=== PATIENT | female | born 1940 | race Caucasian/White ===

== ENCOUNTER → 2017-06-05 | Outpatient (CLI) | payer OTHER ==
[~2017-06-05] MED LIST: ADULT LOW DOSE81 MG PO; AMBIEN 10 MG TA10 MG PO; ANTIBIOTIC; CAL-MAG-ZINC T1 EACH PO; DIGESTIVE ENZY1 EAC2 PO; DRANOCHOL375 MG PO; FISHOIL; FLAXSEED OIL1000 MG PO; HYDROCODON-ACE1 EACH PO; MEDROLDOSEPACK PO; MIRAPEX1 MG PO; MULTIVITAMINS; PROZAC 10 MG CA10 M1 PO; VALIUM10 MG PO; ZOCOR 20 MG TAB20 M1 PO
== END ==
LOC: RAD 15:12
DX: M79.605 Pain in left leg (principal); M79.604 Pain in right leg; M79.89 Other specified soft tissue disorders; R06.09 Other forms of dyspnea; R60.1 Generalized edema; R91.8 Other nonspecific abnormal finding of lung field

== ENCOUNTER → 2017-06-17 | Outpatient (CLI) | payer OTHER ==
--- NOTE | ~2017-06-17 | 2DMMODE ---
[facility] [address] [place] [address] 2 D/M-MODE ECHOCARDIOGRAM Name: JEMIMA MORAN ANN Room #: REG CL [facility]#: [id number] Admission: 06/17/17 Attend Phys: Mak Guzman MD Discharge: Date of : 40 Date of Service: 06/17/17 1558 Report #: [id number] THIS REPORT FOR: //name// APPROVED REPORT Study performed: 06/17/2017 13:33:21 EXAM: Comprehensive 2D, Doppler, and color-flow Echocardiogram Patient Location: Out-Patient Status: routine BSA: 1.70 HR: 70 bpm BP: 128/72 mmHg Rhythm: NSR Other Information Study Quality: Adequate Indications Dyspnea, edema. HLP 2D Dimensions RVDd: 36.80 mm LVEF(%): 64.81 (>50%) IVSd: 9.80 (7-11mm) LVOT Diam: 19.30 (18-24mm) LVDd: 42.80 mm PWd: 8.84 (7-11mm) Ascending Ao: 27.24 (22-36mm) LVDs: 27.75 (25-40mm) Aortic Root: 28.20 mm Alston's LVEF: 64.81 % Volumes Left Atrial Volume (Systole) Single Plane 4CH: 47.98 mL Single Plane 2CH: 44.25 mL LA ESV Index: 29.00 mL/m2 Aortic Valve AoV Peak Mir.: 1.81 m/s AO Peak Gr.: 13.05 mmHg LVOT Max P.00 mmHg LVOT Max V: 1.41 m/s BRANDEN Vmax: 2.29 cm2 Mitral Valve E/A Ratio: 0.8 MV Decel. Time: 251.03 ms [facility] [place] [address] [place] [address] 2 D/M-MODE ECHOCARDIOGRAM Name: LUISACAPRICE Room #: REG [facility].#: [id number] Admission: 06/17/17 Attend Phys: Mak Guzman MD Discharge: Date of : 40 Date of Service: 06/17/17 1558 Report #: [id number] MV E Max Mir.: 0.85 m/s MV A Mir.: 1.06 m/s MV PHT: 72.80 ms IVRT: 73.82 ms Pulmonary Valve PV Peak Mir.: 1.10 m/s PV Peak Gr.: 4.86 mmHg Pulmonary Vein P Vein S: 0.83 m/s P Vein A: 0.36 m/s P Vein D: 0.41 m/s P Vein A Dur.: 120.0 msec P Vein S/D Ratio: 2.02 Tricuspid Valve TR Peak Mir.: 2.62 m/s RAP Estimate: 5.00 mmHg TR Peak Gr.: 27.45 mmHg PA Pressure: 32.00 mmHg Left Ventricle The left ventricle is normal size. There is normal LV segmental wall motion. There is normal left ventricular wall thickness. Left ventricular systolic function is normal. LVEF is 60-65%. Mild diastolic dysfunction is present (impaired relaxation pattern). Right Ventricle The right ventricle is normal size. The right ventricular systolic function is normal. Atria The left atrium size is normal. The right atrium size is normal. Aortic Valve The aortic valve is normal in structure. No aortic regurgitation is present. There is no aortic valvular stenosis. Mitral Valve The mitral valve is normal in structure. Trace to mild mitral regurgitation. No evidence of mitral valve stenosis. Tricuspid Valve The tricuspid valve is normal in structure. Mild tricuspid regurgitation. Estimated PAP is 30-35mmHg. Pulmonic Valve [facility] [address] [place] [address] 2 D/M-MODE ECHOCARDIOGRAM Name: JEMIMA MORAN ANN Room #: REG CL Brandi#: [id number] Admission: 06/17/17 Attend Phys: Mak Guzman MD Discharge: Date of : 40 Date of Service: 06/17/17 1558 Report #: [id number] The pulmonary valve is normal in structure. Trace pulmonic regurgitation. Great Vessels The aortic root is normal in size. The ascending aorta is normal in size. IVC is normal in size and collapses >50% with inspiration. Pericardium There is no pericardial effusion. <Conclusion> Left ventricular systolic function is normal. There is normal LV segmental wall motion. LVEF 60-65%. Mild diastolic dysfunction The aortic valve is normal in structure. No aortic regurgitation or stenosis. The mitral valve is normal in structure. Trace to mild mitral regurgitation. Mild tricuspid regurgitation. Estimated pulmonary artery pressure of 30-35mmHg. There is no pericardial effusion. <ELECTRONICALLY SIGNED> By: Adrian De Dios MD, FACC 06/17/17 1558 1558 1558 Adrian De Dios MD, FACC /INF
== END ==
LOC: CV 12:31
DX: I34.0 Nonrheumatic mitral (valve) insufficiency (principal); E78.5 Hyperlipidemia, unspecified

== ENCOUNTER → 2018-07-07 | Outpatient (CLI) | payer OTHER | LOC: HYPER 06:55 | DX: L97.821 Non-pressure chronic ulcer of other part of left lower leg limited to breakdown of skin (principal); L03.115 Cellulitis of right lower limb; E66.9 Obesity, unspecified; G35 Multiple sclerosis; I87.2 Venous insufficiency (chronic) (peripheral); E78.5 Hyperlipidemia, unspecified; G47.30 Sleep apnea, unspecified; R29.898 Other symptoms and signs involving the musculoskeletal system; R26.89 Other abnormalities of gait and mobility; Z87.891 Personal history of nicotine dependence; Z79.82 Long term (current) use of aspirin; Z91.81 History of falling ==

== ENCOUNTER → 2018-07-14 | Outpatient (CLI) | payer OTHER | LOC: HYPER 07:00 | DX: L97.821 Non-pressure chronic ulcer of other part of left lower leg limited to breakdown of skin (principal); L03.116 Cellulitis of left lower limb; L03.115 Cellulitis of right lower limb; E66.9 Obesity, unspecified; E78.5 Hyperlipidemia, unspecified; G35 Multiple sclerosis; G25.81 Restless legs syndrome; I87.2 Venous insufficiency (chronic) (peripheral); R29.898 Other symptoms and signs involving the musculoskeletal system; Z47.33 Aftercare following explantation of knee joint prosthesis; Z79.82 Long term (current) use of aspirin; Z87.891 Personal history of nicotine dependence; Z68.29 Body mass index [BMI] 29.0-29.9, adult ==

== ENCOUNTER → 2018-07-28 | Outpatient (CLI) | payer OTHER | LOC: HYPER 06:43 | DX: L97.821 Non-pressure chronic ulcer of other part of left lower leg limited to breakdown of skin (principal); L03.115 Cellulitis of right lower limb; I87.2 Venous insufficiency (chronic) (peripheral); E78.5 Hyperlipidemia, unspecified; G35 Multiple sclerosis; E66.9 Obesity, unspecified; G47.33 Obstructive sleep apnea (adult) (pediatric); R60.1 Generalized edema; R29.898 Other symptoms and signs involving the musculoskeletal system; R26.89 Other abnormalities of gait and mobility; Z87.891 Personal history of nicotine dependence; Z68.39 Body mass index [BMI] 39.0-39.9, adult; Z91.81 History of falling; Z79.82 Long term (current) use of aspirin ==

== ENCOUNTER → 2018-08-16 | Outpatient (CLI) | payer OTHER | LOC: RAD 10:18 | DX: R06.09 Other forms of dyspnea (principal); M41.84 Other forms of scoliosis, thoracic region ==

== ENCOUNTER → 2021-03-15 | Outpatient (CLI) | payer OTHER | LOC: RAD 09:08 | PROVIDERS: ATTEND Internal Medicine Pulmonary Disease | DX: R06.02 Shortness of breath (principal) ==